=== PATIENT | male | born 1995 | race Caucasian/White ===

== ENCOUNTER 2018-01-10 13:02 | Emergency (ER) | payer SELFPAY ==
[~2018-01-10] VITALS: Ht 168 cm; Wt 58.0 kg
[2018-01-10 13:06] VITALS: TEMP 98
[2018-01-10] MEDS ORDERED: KEPPRA1000 MG PO (13:06)
[2018-01-10 13:39] LABS: BASO # 0.1 (0.0-0.2); BASO % 0.4 % (0.0-2.0); GRAN # 9.5 (1.4-6.5); GRAN % 83.3 % (42.2-75.2); HEMATOCRIT 50.1 % (42.0-52.0); HEMOGLOBIN 16.7 g/dl (13.5-18.0); LYMPH # 1.3 (1.2-3.4); LYMPH % 11.2 % (20.0-51.0); MEAN CELL VOLUME 83 fl (80.0-100.0); MEAN CORPUSCULAR HEMOGLOBIN 28 pg (27.0-31.0); MEAN CORPUSCULAR HGB CONC 33 g/dl (33.0-37.0); MEAN PLATELET VOLUME 10.4 fl (7.4-10.4); MONO # 0.5 (0.1-0.6); MONO % 4.7 % (1.7-9.3); PLATELET COUNT 187 K/mm3 (130-400); RED BLOOD COUNT 6.04 M/mm3 (4.20-5.60)
[2018-01-10 13:51] LABS: ALBUMIN 5.3 gm/dL (3.5-5.0); BILIRUBIN,TOTAL 0.3 mg/dL (0.0-1.0); CREATININE, serum 0.65 mg/dL (0.66-1.25); POTASSIUM 4.6 mmol/L (3.4-5.0); TOTAL PROTEIN 8.7 gm/dL (6.4-8.2)
[2018-01-10 14:07] LABS: PROLACTIN 58.3 ng/mL (3.7-17.9)
[2018-01-10 17:00] VITALS: BP 105/66; PULSE 90
== END 2018-01-10 17:00 | disposition home or self-care (01) ==
LOC: COL.ER 13:02
PROVIDERS: Physician Assistant
DX: G40.909 Epilepsy, unspecified, not intractable, without status epilepticus (principal)
CPT/HCPCS: J1885; J1953; J7030

== ENCOUNTER 2018-04-18 15:35 | Emergency (ER) | payer SELFPAY ==
[~2018-04-18] VITALS: Ht 429.3 cm; Wt 59.0 kg
[~2018-04-18 15:35] MED LIST: KEPPRA1000 MG PO
[2018-04-18 15:37] VITALS: TEMP 98.3
[2018-04-18 16:01] LABS: BASO % 0.3 % (0.0-2.0); GRAN # 8.1 (1.4-6.5); GRAN % 85.7 % (42.2-75.2); HEMATOCRIT 45.2 % (42.0-52.0); LYMPH # 0.8 (1.2-3.4); LYMPH % 8.9 % (20.0-51.0); MEAN CELL VOLUME 83 fl (80.0-100.0); MEAN CORPUSCULAR HEMOGLOBIN 27 pg (27.0-31.0); MEAN CORPUSCULAR HGB CONC 33 g/dl (33.0-37.0); MEAN PLATELET VOLUME 10.4 fl (7.4-10.4); MONO # 0.5 (0.1-0.6); MONO % 4.7 % (1.7-9.3); PLATELET COUNT 186 K/mm3 (130-400); RED BLOOD COUNT 5.47 M/mm3 (4.20-5.60); REDCELL DISTRIBUTION WIDTH-CV 13.4 % (11.5-14.5)
[2018-04-18 16:12] LABS: ALBUMIN 4.6 gm/dL (3.5-5.0); BILIRUBIN,TOTAL 0.2 mg/dL (0.0-1.0); CALCIUM 9.6 mg/dL (8.4-10.2); CREATININE, serum 0.68 mg/dL (0.66-1.25); POTASSIUM 4.6 mmol/L (3.4-5.0); TOTAL PROTEIN 7.5 gm/dL (6.4-8.2)
[2018-04-18 17:04] VITALS: BP 113/72; PULSE 87
== END 2018-04-18 17:05 | disposition home or self-care (01) ==
LOC: COL.ER 15:35
PROVIDERS: Emergency Medicine
DX: G40.909 Epilepsy, unspecified, not intractable, without status epilepticus (principal)
CPT/HCPCS: J2060

== ENCOUNTER 2020-12-18 20:53 | Emergency (ER) | payer OTHER ==
[~2020-12-18] VITALS: Ht 168 cm; Wt 60.0 kg
[2020-12-18 22:00] VITALS: BP 132/64; PULSE 78; TEMP 97.8
== END 2020-12-18 22:20 | disposition home or self-care (01) ==
LOC: COL.ER 20:53
DX: S61.216A Laceration without foreign body of right little finger without damage to nail, initial encounter (principal); G40.909 Epilepsy, unspecified, not intractable, without status epilepticus; Z23 Encounter for immunization; Z79.899 Other long term (current) drug therapy; W27.4XXA Contact with kitchen utensil, initial encounter; Y93.89 Activity, other specified

== ENCOUNTER → 2020-12-25 | Outpatient (CLI) | payer OTHER ==
[2020-12-25 11:45] VITALS: BP 127/75; PULSE 72
== END ==
LOC: COL.ER 11:34
DX: Z48.02 Encounter for removal of sutures (principal)